=== PATIENT | female | born 1985 | race Caucasian/White ===

== ENCOUNTER 2017-04-23 21:38 | Emergency (ER) | payer OTHER ==
[~2017-04-23] VITALS: Ht 157.5 cm; Wt 65.8 kg
[2017-04-23 21:55] VITALS: BP 125/74
--- NOTE | 2017-04-23 22:00 | NUR ---
TO LOBBY, AMB , EKG DONE, A/W FOR BED, ERMD NOTED
--- NOTE | 2017-04-24 00:10 | NUR ---
PT C/O GENERALIZED BODY PAIN, C/P, HEADACHE SINCE 04/12. COUGH, SOB, VOMIT X1, DIARRHEA. ABD ROUND, SOFT, NON TENDER, BL BREATH SOUNDS CLEAR THORUGH OUT. NKA, PMH TACHYCARDIA.
[2017-04-24] MEDS ORDERED: KETOROLAC 60 MG/2 ML VIAL IM ONE (00:20)
[2017-04-24 00:59] VITALS: BP 119/69
--- NOTE | 2017-04-24 01:00 | NUR ---
Patient discharged with v/s stable. Written and verbal after care instructions given and explained. Patient alert, oriented and verbalized understanding of instructions. Ambulatory with steady gait. All questions addressed prior to discharge. ID band removed. Patient advised to follow up with PMD. Rx of ZOFRAN 4MG, PROMETHAZINE HCL 6.25 MG, TRAMADOL 50MG given. Patient educated on indication of medication including possible reaction and side effects. Opportunity to ask questions provided and answered.
== END 2017-04-24 00:59 | disposition home or self-care (01) ==
LOC: MED 21:38
DX: B34.9 Viral infection, unspecified (principal)
CPT/HCPCS: 96372; 99283; J1885